=== PATIENT | male | born 1995 | race Caucasian/White ===

== ENCOUNTER 2019-10-06 15:56 | Emergency (ER) | payer OTHER, MEDICAID ==
[~2019-10-06] VITALS: Ht 182.9 cm; Wt 95.3 kg
[2019-10-06] MEDS ORDERED: ARIP15TA2 PO (17:00)
[2019-10-06 17:01] VITALS: BP_SYST 141
[2019-10-06] MEDS ORDERED: VIS50 PO (17:01)
--- NOTE | 2019-10-06 17:05 | NUR ---
PATIENT RETURNED TO WAITING ROOM AWAITING BED AVAILABILITY
== END 2019-10-06 18:00 | disposition left against medical advice (07) ==
LOC: SED 15:56
DX: R51 Headache (principal); R50.9 Fever, unspecified; R53.83 Other fatigue; Z53.21 Procedure and treatment not carried out due to patient leaving prior to being seen by health care provider